=== PATIENT | male | born 1970 | race Caucasian/White ===

== ENCOUNTER 2018-12-28 07:02 | Day surgery (SDC) | payer OTHER ==
[2018-12-27 14:21] VITALS: BMI 28.1
[2018-12-28] MEDS ORDERED: ROPIVACAINE HCL 0.5% 30ML VIAL ONE (09:04)
[2018-12-28] MEDS ORDERED: MIDAZOLAM HCL 2 MG/2 ML SINGLE DOSE VIAL ONE (09:04)
[2018-12-28] MEDS ORDERED: DEXAMETHASONE SOD PHOSPHATE 4 MG/1 ML VIAL ONE (09:38)
[2018-12-28] MEDS ORDERED: KETOROLAC TROMETHAMINE 30 MG/1 ML VIAL ONE (09:38)
[2018-12-28] MEDS ORDERED: ONDANSETRON 4 MG/2 ML VIAL ONE (09:38)
[2018-12-28] MEDS ORDERED: ceFAZolin SODIUM 1 GM VIAL ONE (09:38)
[2018-12-28] MEDS ORDERED: ONDANSETRON 4 MG/2 ML VIAL IVPUSH PRN (10:26)
[2018-12-28] MEDS ORDERED: oxyCODONE HCL 5 MG TABLET PO PRN ×2 (10:26)
[2018-12-28] MEDS ORDERED: PROMETHAZINE HCL 25 MG/1 ML VIAL IVPUSH PRN (10:26)
[2018-12-28 11:21] VITALS: PULSE 69
[2018-12-28 11:40] VITALS: BP 128/71; TEMP 97.8
--- NOTE | 2018-12-28 13:11 | OP ---
DATE OF OPERATION: 12/28/2018 PREOPERATIVE DIAGNOSIS: Impingement to the left shoulder with rotator cuff tear. POSTOPERATIVE DIAGNOSIS: Impingement to the left shoulder with rotator cuff tear. PROCEDURE PERFORMED: Operative arthroscopy of the left shoulder with partial acromioplasty, lysis of adhesions, and joint debridement, extensive partial synovectomy, debridement for superior labrum anterior and posterior lesion to the glenoid of a type I superior labrum anterior and posterior lesion, tearing of the rotator cuff with debridement of the rotator cuff, which is found to be partial thickness. SURGEON: Yolande Baptiste MD POOL PLAYER: Mahamed Guevara, [facility] ANESTHESIA: Abran Riley MD, and regional anesthesia was performed. DESCRIPTION OF PROCEDURE: The procedure consisted of the patient was brought in the operating room and gently transferred from the stretcher to the OR table with all bony prominences well padded. The left shoulder was prepared and draped in sterile fashion. Patient was given intravenous antibiotics and copious irrigation throughout the procedure to minimize risk of infection. The complete risks, benefits, and alternatives discussion was conducted with the patient, which was inclusive of but not limited to infection, bleeding, , paralysis, need for repeat surgery. Patient understood the procedure, asked questions, and desired to proceed with surgical treatment. An appropriate timeout was conducted with the patient which was inclusive of but not limited to site of surgery, type of surgery; anesthesiologist, Dr. Riley; and surgeon. The procedure consisted of the patient brought in the operating room. He was appropriately positioned with the left side up lateral decubitus position with all bony prominences well padded. The head and neck and face were protected throughout the procedure by the anesthesiologist. A pillow below the legs and a pillow between the legs was placed to protect the neurovascular structures of the legs. Pneumatic patient rest contouring the body with an axillary roll was placed to protect the lower shoulder and the body. Patient was awake during positioning to ensure that no impingement on bodily structures was created. Following this, gentle traction of approximately 8 pounds was applied across the shoulder joint, and this was distracted using a traction device. Anterior, posterior, lateral portals were used to introduce the arthroscope and arthroscopic instruments. The anterior portal was fabricated using inside-out method over a transfer orly to protect neurovascular structures. Following this, the glenohumeral joint was evaluated. There was noted to be intact grade 2B middle glenohumeral and biceps tendon, anterior and posterior recess without loose body. The inferior glenohumeral ligament was also visualized. On the glenoid there was noted to be a SLAP lesion, type I, which was evaluated and probed and found to be stable with the biceps insertion stable, and this was debrided using shaver and radiofrequency wand. There was noted be joint debris and extensive joint debridement was performed with synovectomy. The inferior articular surface of the rotator cuff was found to have a tear, which was probed and found to be partial thickness, and this was debrided using shaver and radiofrequency wand. The shoulder joint was copiously irrigated, and our attention was turned to the subacromial space. There was noted to be extensive inflamed bursal tissue and a partial bursectomy was performed. The acromion was also creating impingement. This was smoothed, with a wedge of bone thick anteriorly and posteriorly. Lateral clavicle was also creating impingement. This was debrided using shaver and radiofrequency wand, including the articular surface. The shoulder joint was then copiously irrigated with sterile saline irrigant, and wounds were closed with 4-0 undyed Vicryl, Steri-Strips, Xeroform, 4 x 4's, Combine, and a shoulder immobilizer. The patient was then gently woken from anesthesia without incident, transferred from the operating room to the recovery room in satisfactory condition. There were no intraoperative complications. YOLANDE BAPTISTE M.D. [id number]
== END 2018-12-28 11:40 | disposition home or self-care (01) ==
LOC: FASU 07:02
PROVIDERS: ATTEND Orthopaedic Surgery
PROC: 0RBK4ZZ Excision of Left Shoulder Joint, Percutaneous Endoscopic Approach (ICD-10-PCS; 2018-12-28)
PROC: 0RNK4ZZ Release Left Shoulder Joint, Percutaneous Endoscopic Approach (ICD-10-PCS; 2018-12-28)
PROC: 0LQ24ZZ Repair Left Shoulder Tendon, Percutaneous Endoscopic Approach (ICD-10-PCS; principal; 2018-12-28 09:53)
DX: M75.112 Incomplete rotator cuff tear or rupture of left shoulder, not specified as traumatic (principal); M75.42 Impingement syndrome of left shoulder